=== PATIENT | male | born 1975 | race Caucasian/White ===

== ENCOUNTER 2018-01-13 14:49 | Emergency (ER) | payer OTHER ==
[~2018-01-13] VITALS: Ht 182.9 cm; Wt 141.1 kg
[2018-01-13 15:08] VITALS: BP 160/111
[2018-01-13 15:33] LABS: ABSOLUTE BASOPHIL COUNT 0 /CUMM (0.0-0.2); ABSOLUTE EOSINOPHIL COUNT 0 /CUMM (0.0-0.7); ABSOLUTE LYMPH COUNT 2.2 /CUMM (1.2-3.4); BASOPHIL % 0.2 % (0.0-2.0); EOSINOPHIL % 0.2 % (0-5); GRANULOCYTE % 68.4 % (42.2-75.2); HEMATOCRIT 47.2 % (42-52); MEAN CORPUSCULAR HGB 29.5 PG (27.0-31.0); MEAN CORPUSCULAR HGB CONC 33.7 G/DL (33.0-37.0); MEAN CORPUSCULAR VOLUME 87.4 FL (80.0-94.0); MEAN PLATELET VOLUME 7.4 FL (7.4-10.4); PLATELET COUNT 300 /CUMM (130-400); WHITE BLOOD CELL COUNT 10.2 /CUMM (4.8-10.8)
--- NOTE | 2018-01-13 17:16 | ED GI/GU/ABDOMINAL COMPLAINT ---
History of Present Illness General Chief Complaint: General Adult Stated Complaint: INDIGESTION, SEVERE HEARTBURN, DIAREHHA Source: patient Exam Limitations: no limitations Vital Signs & Intake/Output Vital Signs & Intake/Output Vital Signs Date Time Temp Pulse Resp B/P B/P Pulse O2 O2 Flow FiO2 Mean Ox Delivery Rate 01/13 1508 97.5 88 18 160/111 98 Room Air Room Air Allergies Coded Allergies: NO KNOWN ALLERGIES (08/28/14) Reconcile Medications Hyoscyamine (Levsin) 0.125 MG TABLET 1 TAB PO Q4 PRN abdominal spasms Ondansetron (Zofran Odt) 4 MG TAB.RAPDIS 1 TAB SL TID PRN nausea Triage Note: PT TO ED WITH C/O "PAIN AFTER EATING FRIED FOODS, AND THEN LATER I GET DIARRHEA" X "COUPLE OF MONTHS, I CALLED MY PMD AND THEY CAN'T SEE ME UNTIL NEXT WEEK". Triage Nurses Notes Reviewed? yes Onset: Gradual Duration: week(s): (2) Timing: no prior history Quality/Severity: cramping Severity Numbers: 4 Location: right upper quadrant Radiation: no radiation Activities at Onset: none Past Sexual History: Unobtainable at this time HPI: Patient is a 43-year-old male with history of hypertension, obesity presenting to the emergency Department chief complaint of right upper abdominal pain has been intermittent for the past 2 weeks with associated nausea and diarrhea. Patient reports that he's had about 8-10 episodes over the past 2-3 days. No blood in the stool. Patient denies any vomiting. Symptoms worse after eating fatty foods. No history of issues with his gallbladder in the past. Denies any fevers or chills. No shortness of breath. No chest pain or palpitations. Tried heat taking Tums without relief. No recent travel. Denies recent antibiotic use. (Christiana FAJARDO,Nithya) Past History Travel History Traveled to [place] past 21 day No Medical History Any Pertinent Medical History? see below for history Neurological: NONE EENT: NONE Cardiovascular: hypertension Respiratory: asthma Gastrointestinal: GERD Hepatic: NONE Renal: NONE Musculoskeletal: NONE Psychiatric: NONE Endocrine: NONE Blood Disorders: NONE Cancer(s): NONE RING STRIKER/Reproductive: NONE Surgical History Surgical History: non-contributory Psychosocial History What is your primary language Luxembourgish Tobacco Use: Quit >30 days ago ETOH Use: occasional use Illicit Drug Use: denies illicit drug use Family History Hx Contributory? No (Nithya Pierce) Review of Systems Review of Systems Constitutional: Reports: no symptoms. Comments Review of systems: See HPI, All other systems negative. Constitutional, no chills fever or weight loss HEENT: No visual changes no sore throat no congestion Cardiovascular: No chest pain ,palpitation , orthopnea or ankle swelling Skin, no jaundice no rashes Respiratory: No dyspnea cough sputum or hemoptysis GI: no vomiting : No dysuria No hematuria Muscle skeletal: no back pain, no neck pain, Neurologic: No numbness no confusion Psych: No stress anxiety or depression,. Heme/endocrine: No bruising no bleeding no polyuria or polydipsia Immunology: No splenectomy or history of AIDS (Nithya Pierce) Physical Exam Physical Exam General Appearance: well developed/nourished, no apparent distress, alert, awake Gastrointestinal: normal bowel sounds, soft, tenderness Comments: obese person in no acute distress HEENT: Pupils equally round and reactive to light and accommodation. Nose is atraumatic. External auditory canal and Tympanic membranes clear. Pharynx normal. No swelling or edema. Neck: Normal inspection Back: Nontender, no CVA tenderness. Cardiovascular: Regular rate and rhythms no murmurs rubs or gallops, normal JVP Respiratory: No respiratory distress.breath sounds clear to auscultation bilaterally Abdomen: Soft, tender palpation in the right upper quadrant without rebound or guarding, nondistended, no appreciable organomegaly. Normal bowel sounds. No ascites Extremity: No edema Neuro: Alert oriented x3 Skin: No appreciable rash on exposed skin, skin is warm and dry. Psych: Mood and affect is normal, memory and judgment is normal. Core Measures ACS in differential dx? No Sepsis Present: No Sepsis Focused Exam Completed? No (Nithya Pierce) Progress Differential Diagnosis: biliary colic, UTI/pyelo, ureterolithiasis, cholecystitis, cholangitis, biliary colic, hepatitis, viral syndrome, pancreatitis, peptic ulcer disease Plan of Care: Orders Procedure Date/time Status Add-on Test (ER Only) 01/13 1843 Active CULTURE,STOOL 01/13 1731 Active C.DIFFICILE 01/13 1731 Active DIRECT BILIRUBIN 01/13 1515 Complete URINALYSIS 01/13 1512 Complete LIPASE 01/13 1512 Complete COMPREHENSIVE METABOLIC PANEL 01/13 151 Complete CBC WITHOUT DIFFERENTIAL 01/13 151 Complete AMYLASE 01/13 151 Complete Laboratory Tests 01/13/18 1528: Urine Color YEL, Urine Clarity CLEAR, Urine pH 6.0, Ur Specific [place] 1.025, Urine Protein NEG, Urine Ketones NEG, Urine Nitrite NEG, Urine Bilirubin NEG, Urine Urobilinogen 0.2, Ur Leukocyte Esterase NEG, Ur Microscopic EXAM NOT REQUIRED, Urine Hemoglobin NEG, Urine Glucose NEG 01/13/18 1515: Anion Gap 14, Estimated GFR > 60, BUN/Creatinine Ratio 18.0, Glucose 101 H, Calcium 9.7, Total Bilirubin 1.6 H, Direct Bilirubin 0.7 H, AST 51, ALT 53, Alkaline Phosphatase 68, Total Protein 7.7, Albumin 4.4, Globulin 3.3, Albumin/ Globulin Ratio 1.3, Amylase < 30 L, Lipase 159, CBC w Diff NO MAN DIFF REQ, RBC 5.40, MCV 87.4, MCH 29.5, MCHC 33.7, RDW 14.0, MPV 7.4, Gran % 68.4, Lymphocytes % 21.9, Monocytes % 9.3, Eosinophils % 0.2, Basophils % 0.2, Absolute Granulocytes 7.0 H, Absolute Lymphocytes 2.2, Absolute Monocytes 1.0 H, Absolute Eosinophils 0, Absolute Basophils 0 Microbiology 01/13 1737 STOOL: Clostridium difficile Toxin A & B - RECD 01/13 1737 STOOL: Stool Culture - RECD Patient has minimal to no pain on exam at this time. Patient declines nausea medication at this time. Patient informed of laboratory results. Slight elevation in bilirubin and direct bilirubin. Spoke with Dr. Reed, no evidence of acute cholecystitis or gallstones. No signs of biliary ductal dilation. Patient will need follow-up palpation, may need HIDA scan or further evaluation. Patient sent home with Levsin and Zofran. Educated on consuming bland diet. Educated on signs and symptoms return. Repeat blood pressure prior to discharge was 160/80. Patient will follow-up with his PCP regarding hypertension. Diagnostic Imaging: Viewed by Me: Ultrasound. Discussed w/RAD: Ultrasound. Radiology Impression: PATIENT: KELSI LIM JR PRESENT AGE: 43 PATIENT ACCOUNT NO: [id number] : 74 LOCATION: [facility] ORDERING PHYSICIAN: Nithya FAJARDO SERVICE DATE: 01/13/18-171 EXAM TYPE: US - US-LIMITED ABDOMEN EXAMINATION: US ABDOMEN LIMITED CLINICAL INFORMATION: Quadrant pain. COMPARISON: None TECHNIQUE: Real-time imaging of the right upper quadrant abdominal viscera. FINDINGS: PANCREAS: Normal. LIVER: Is mildly enlarged. It measures 20.6 cm. Diffuse increased echogenicity. Questionable dilatation of the biliary tree. No obstructing source. GALLBLADDER: Gallbladder is prominent at 5.5 cm in girth. The gallbladder is physiologically distended without evidence of stones, sludge, polyps, wall thickening or pericholecystic fluid. COMMON BILE DUCT: Normal in caliber measuring 0.4 cm in diameter. RIGHT KIDNEY: Normal. No hydronephrosis. No renal calculi or focal parenchymal lesions. The kidney measures 12.2 cm in maximum dimension. FREE FLUID: None. IMPRESSION: 1. Mild hepatomegaly with changes of diffuse hepatic steatosis. No discrete lesion. 2. Questionable dilatation of the intrahepatic biliary radicles uncertain significance. Correlate with LFTs. This is an equivocal finding. 3. Gallbladder is distended which may be physiologic. Correlate clinically. DICTATED BY: Srinath Parra MD DATE/TIME DICTATED:01/13/181824 [employer]IC [employer]STUME MAKER:RITESH DATE/TIME TRANSCRIBED:01/13/181824 CONFIDENTIAL, DO NOT COPY WITHOUT APPROPRIATE AUTHORIZATION. <Electronically signed in Other Vendor System> SIGNED BY: Srinath Parra MD 01/13/181831 Initial ED EKG: none (Christiana FAJARDO,Nithya) Departure Departure Time of Disposition: 1914 Disposition: HOME OR SELF CARE Condition: Stable Clinical Impression Primary Impression: Abdominal pain Qualifiers: Abdominal location: unspecified location Qualified Code: R10.9 - Unspecified abdominal pain Secondary Impressions: Diarrhea Qualifiers: Diarrhea type: unspecified type Qualified Code: R19.7 - Diarrhea, unspecified Referrals: Brianna EPPS,Jeremy Erwin DO (PCP/Family) Additional Instructions: Follow-up with gastroenterology, call to make an appointment. stick with bland diet. Clear liquids for the next 24 hours. Take Levsin help with abdominal spasms. Take Zofran help with nausea. Return for any worsening symptoms or concerns. Departure Forms: Customer Survey General Discharge Information Prescriptions: Current Visit Scripts Hyoscyamine (Levsin) 1 TAB PO Q4 PRN abdominal spasms #20 TAB Ondansetron (Zofran Odt) 1 TAB SL TID PRN nausea #10 TAB (Nithya Pierce) PA/VACUUM WORKER Co-Sign Statement Statement: ED Attending supervision documentation- [] I saw and evaluated the patient. I have also reviewed all the pertinent lab results and diagnostic results. I agree with the findings and the plan of care as documented in the PA's/VACUUM WORKER's documentation. [X] I have reviewed the ED Record and agree with the PA's/VACUUM WORKER's documentation. [] Additions or exceptions (if any) to the PAs/VACUUM WORKER's note and plan are summarized below: [] (Ramone Ricardo DO)
--- NOTE | 2018-01-13 18:32 | ULTRASOUND REPORT ---
EXAMINATION: US ABDOMEN LIMITED CLINICAL INFORMATION: Quadrant pain. COMPARISON: None TECHNIQUE: Real-time imaging of the right upper quadrant abdominal viscera. FINDINGS: PANCREAS: Normal. LIVER: Is mildly enlarged. It measures 20.6 cm. Diffuse increased echogenicity. Questionable dilatation of the biliary tree. No obstructing source. GALLBLADDER: Gallbladder is prominent at 5.5 cm in girth. The gallbladder is physiologically distended without evidence of stones, sludge, polyps, wall thickening or pericholecystic fluid. COMMON BILE DUCT: Normal in caliber measuring 0.4 cm in diameter. RIGHT KIDNEY: Normal. No hydronephrosis. No renal calculi or focal parenchymal lesions. The kidney measures 12.2 cm in maximum dimension. FREE FLUID: None. IMPRESSION: 1. Mild hepatomegaly with changes of diffuse hepatic steatosis. No discrete lesion. 2. Questionable dilatation of the intrahepatic biliary radicles uncertain significance. Correlate with LFTs. This is an equivocal finding. 3. Gallbladder is distended which may be physiologic. Correlate clinically.
[2018-01-13] MEDS ORDERED: LEVSIN0.125 M1 PO (19:16)
[2018-01-13] MEDS ORDERED: ZOFRAN ODT4 M1 SL (19:16)
== END 2018-01-13 19:28 ==
LOC: ERH 14:49
PROVIDERS: Emergency Medicine
DX: R10.11 Right upper quadrant pain (principal); R19.7 Diarrhea, unspecified
CPT/HCPCS: 81003; 87045